=== PATIENT | female | born 1935 | race Caucasian/White ===

== ENCOUNTER 2021-11-19 15:49 | Outpatient (REF) | payer MEDICARE, SELFPAY ==
[2021-11-19 16:05] LABS: MANUAL DIFF FLAG NO
[2021-11-19 16:27] LABS: Basophils Absolute Auto 0.1 X10*3/uL (0.0-0.2); Basophils Percent Auto 1.3 % (0-2); Eosinophils Absolute Auto 0.3 X10*3/uL (0.0-0.4); Eosinophils Percent Auto 5.4 % (0-4); Hematocrit 33.6 % (37.0-47.0); Hemoglobin 10.9 g/dl (12.0-16.0); Imm Gran Abs Auto 0.03 X10*3/uL (0.00-0.03); Imm Gran Pct Auto 0.5 % (0.0-0.4); Lymphocytes Absolute Auto 1.8 X10*3/uL (1.2-4.9); Lymphocytes Percent Auto 32.1 % (20-40); Mean Corpuscular HGB Conc 32.4 g/dl (31.0-35.0); Mean Corpuscular Hemoglobin 30.3 pg (27.0-33.0); Mean Corpuscular Volume 93.3 fL (80.0-98.0); Mean Platelet Volume 9.1 fL (9.4-12.3); Monocytes Absolute Auto 0.7 X10*3/uL (0.1-1.2); Monocytes Percent Auto 12.8 % (2-11); Neutrophils Absolute Auto 2.7 x10*3/uL (2.0-8.3); Neutrophils Percent Auto 47.9 % (45-73); Platelet Count 319 X10*3/uL (160-400); Red Cell Distribution Width 14.4 % (11.0-16.0); White Blood Count 5.6 X10*3/uL (4.8-10.8)
[2021-11-19 16:41] LABS: Alanine Aminotransferase 19 U/L (0-31); Alkaline Phosphatase 135 U/L (39-117); Anion Gap 16 (12-20); Aspartate Amino Transferase 19 U/L (5-31); Bilirubin Total 0.6 mg/dL (0.0-1.0); Blood Urea Nitrogen 15 mg/dL (9-16); Calcium 9.7 mg/dL (8.4-10.2); Carbon Dioxide 28 mmol/L (22-29); Chloride 96 mmol/L (96-108); Estimated Glomerular Filt Rate > 60; Glucose Random 95 mg/dL (60-115); Potassium 4.3 mmol/L (3.3-5.1); Sodium 136 mmol/L (135-145); Total Protein 7.1 g/dL (6.5-8.0)
== END 2021-11-19 15:50 | disposition home or self-care (01) ==
LOC: HO.LAB 15:49
PROVIDERS: PCP Internal Medicine; Visit Provider Internal Medicine
DX: I10 Essential (primary) hypertension (principal); R33.8 Other retention of urine; R74.01 Elevation of levels of liver transaminase levels; M84.333 Stress fracture, right radius
CPT/HCPCS: 36415; 80053; 85025

== ENCOUNTER 2024-08-21 08:30 | Emergency (ER) | payer MEDICARE, MEDICAID, SELFPAY ==
--- NOTE | ~2024-08-21 | CT_ITS ---
EXAMINATION: CT CERVICAL SPINE WITHOUT CONTRAST CLINICAL INFORMATION: Bilateral of the bed. Head laceration. COMPARISON: None available. TECHNIQUE: Axial 3 mm thin and reformatted 2 mm thin sagittal and coronal images of cervical spine were obtained. This CT examination was performed using dose optimization techniques as appropriate, variously including the following: *Automated exposure control *Adjustment of mA and/or kV according to patient size (this includes techniques or standardized protocols for targeted exams where dose is matched to indication/reason for exam; i.e. extremities or head) *Use of iterative reconstruction technique DLP 1259. FINDINGS: On sagittal reconstructed images there is maintained cervical lordosis. The vertebral heights and alignment is normal. The loss of C3-C4, C4-5 and C5-6 disc height with ventral and posterior spondylosis. The craniovertebral junction and the C1-C2 alignment is normal. No visible acute fracture, dislocation or subluxation seen. The prevertebral and paravertebral soft tissues are normal. The airway is widely patent. The paranasal sinuses are well-aerated and clear. There is bilateral apical parenchymal emphysematous changes and scarring CT/CT cervical spine wo IV con IMPRESSION: Degenerative disc changes. No visible acute fracture, dislocation or subluxation seen in cervical spine. Fleischner guidelines were followed. Electronically signed by: Jaime Pineda MD 08/21/2024 09:48 AM EDT
--- NOTE | ~2024-08-21 | CT_ITS ---
EXAMINATION: CT HEAD WITHOUT CONTRAST CLINICAL INFORMATION: Keith plus head strike COMPARISON: None available. TECHNIQUE: Contiguous axial imaging was performed from the skull base to vertex without intravenous administration of contrast. This CT examination was performed using dose optimization techniques as appropriate, variously including the following: *Automated exposure control *Adjustment of mA and/or kV according to patient size (this includes techniques or standardized protocols for targeted exams where dose is matched to indication/reason for exam; i.e. extremities or head) *Use of iterative reconstruction technique FINDINGS: Brain: There is no acute intra-axial, extra-axial bleed, masses or midline shift. No acute infarction evolution. The christie to white matter differentiation is maintained normal. The lateral ventricles are symmetrical but enlarged. There is a right frontal minimal scalp soft tissue haziness/swelling without any calvarial fracture right lateral paranasal sinuses and mastoid air cells are well-aerated. CT/CT head/brain wo IV con IMPRESSION: No acute intracranial process seen except for minimal right frontal scalp soft tissue swelling Electronically signed by: Jaime Pineda MD 08/21/2024 09:46 AM EDT
[2024-08-21 08:33] VITALS: BP 112/70; PULSE 92
[2024-08-21 08:40] VITALS: BP 99/63; PULSE 76; RESP 19; TEMP 36.6; BMI 17.2
--- NOTE | 2024-08-21 08:41 | ED_ITS ---
HPI - Fall General Chief Complaint: Fall Stated Complaint: FALL @SNF,HEAD LAC/CONTROLLED,+CCOLLAR,-THINNER Time Seen by Provider: 08/21/24 08:31 Source: patient, EMS, RN notes reviewed and old records reviewed Mode of arrival: EMS History of Present Illness ED Provider: Madison Laura PA-C HPI Narrative: 89-year-old female with a past medical history malignant neoplasm of colon, HTN, asthma, ACS, dysphagia, GERD, vascular dementia, presenting to the ED via EMS from [facility] s/p unwitnessed fall out of bed this morning with laceration noted to posterior scalp. Patient currently on hospice. Baseline confused. Remaining history limited due to patient's baseline mental status Related Data Allergies Allergy/AdvReac Type Severity Reaction Status Date / Time amlodipine Allergy Unknown Verified 08/21/24 08:48 gluten Allergy Unknown Verified 08/21/24 08:52 Review of Systems 2 Review of Systems: Yes all other systems are reviewed and are negative Constitutional: Constitutional: Reports as per [facility] Past Medical History Attestation statement: The following information was validated with the patient. Source: old records reviewed Social History Social History Advance Directives: No Advance Directives Information Provided: No Physical Exam 2 Vital Signs: Vital Signs: Last Vital Signs Temp 98 F 08/21/24 08:40 Pulse 76 08/21/24 08:40 Resp 19 08/21/24 08:40 BP 99/63 08/21/24 08:40 O2 Del Method Room Air 08/21/24 08:40 BMI result Body Mass Index 17.2 Const: General: cooperative, healthy appearing and no acute distress L imitations: no limitations HEENT: Other: Large 12 cm laceration noted to posterior scalp. Small hematoma noted. No active bleeding. No appreciable skull depression. Head: Yes laceration Ears: hearing grossly normal bilaterally General nose exam: Normal external nose present Face and sinus: Yes normal facial exam Eyes: General: appearance normal, both eyes and all related structures P upils: Equal, round and reactive pupils present EOM: EOMs intact bilaterally Neck: Other: C-collar in place Neck: Yes normal visual inspection Resp: Effort & Inspection: normal respiratory effort and no respiratory distress Cardio: Rate: regular rate GI: Inspection: Yes normal to inspection Palpation (GI): Soft to palpation, nontender, no guarding and not rigid Skin: Other: Please refer to image above Rashes: no rashes Wounds: no wounds Neuro: General: tone normal and moves all extremities Cranial nerves: Yes CN's II-XII intact bilaterally and Yes Equal, round and reactive pupils present Extrem: Other: Pelvis stable. MAY General: Yes normal to inspection Course Course Course Narrative: CT head/brain wo IV con IMPRESSION: No acute intracranial process seen except for minimal right frontal scalp soft tissue swelling CT cervical spine wo IV con IMPRESSION: Degenerative disc changes. No visible acute fracture, dislocation or subluxation seen in cervical spine. -21 gavin placed to posterior scalp Results discussed with patient including worrisome signs and symptoms and strict return precautions, and when to return to the emergency department. They verbalized understanding and feel safe for discharge at this time. Medications Administered Discontinued Medications Generic Name Dose Route Start Last Admin Trade Name Freq PRN Reason Stop Dose Admin Acetaminophen 975 mg 08/21/24 10:08 08/21/24 10:14 Acetaminophen 325 Mg Tablet PO 08/21/24 10:09 975 mg ONCE ONE Administration Procedures Laceration Laceration 1: Site: scalp Size (cm): 12 Description: linear and flap Pre-repair: wound explored Skin layer closed with: other (gavin) Number of sutures: 21 Medical Decision Making Medical Decision Making MDM Narrative: 89-year-old female with a past medical history malignant neoplasm of colon, HTN, asthma, ACS, dysphagia, GERD, vascular dementia, presenting to the ED via EMS from [facility] s/p unwitnessed fall out of bed this morning with laceration noted to posterior scalp. Patient currently on hospice. On exam vital signs stable, NAD, appears uncomfortable, baseline confused. Large laceration noted to posterior scalp as depicted above. No other evidence of trauma. No midline spinous tenderness. Moving all 4 extremities. C-collar in place. Concern for ICH vs fracture. Tetanus unknown Plan: Head/C-spine CT, repair laceration Spoke with patient's next of kin Chad Douglas, agreeable to obtain CTs, repair wound, and transfer back to facility Please refer to course for remaining clinical decision making, interpretation of labs/imaging results, and discussions with consultants and/or family members. Differential Diagnosis Differential Diagnoses: The differential diagnosis associated with the presentation includes As above Admission/Observation Consideration of admission/observation: Escalation of care including admission/observation considered Lab Data MDM Lab Attestation statement: I reviewed the patient's lab results. Independent Interpretation I performed an independent interpretation of an: CT Scan Radiology Impression Discussion of test interpretation with radiology: I have reviewed the radiologist's reading. Independent Historian Clinical information obtained from an independent historian. History obtained from or confirmed by: EMS External Record Review External record reviewed: Inpatient record, Office record, Outpatient record, Prior outpatient labs, Prior outpatient radiology, Primary care record and Outside ED record Tests considered The following testing was considered but not selected: As above Prescription Management I considered prescription management with: Other Chronic Conditions Patient?s care impacted by: Other Social Determinants Patient?s care significantly limited by Social Determinants of Health including: Inadequate housing, Problems related to primary support group and Other Social Determinant of Health Discharge Plan Discharge Clinical Impression: Laceration of scalp Patient Disposition: [facility] Instructions: Laceration (DC) Additional Instructions: Your wounds were repaired today in the emergency department. Keep dry and clean. You need to return to any emergency department, urgent care, or your PCPs office in 7-10 days for staple removal Apply bacitracin and or Neosporin daily Once sutures are removed apply anti scar cream like Mederma If area begins look infected, is red, there is drainage, streaking, or you have fever please return to the emergency department Referrals: Omi Chou MD [Primary Care Provider] - 1 week Print Language: Unable To Collect
[2024-08-21] MEDS: Acetaminophen 325 MG TABLET 975 MG PO (10:14)
--- OUTSIDE RECORDS SUMMARY | 2024-08-21 10:22 | XMS_ITS ---
Author Organization [facility] Care Team Providers Care Database Designer Name Role Phone Gerri Cabral Unavailable Unavailable Omi Chou Unavailable Unavailable Shanelle Thomason Unavailable Unavailable Allergies and adverse reactions Code CodeSystem Substance Reaction Severity StartDate Concern Status Gluten Unknown 04/29/2021 active 91322 RXNORM Amlodipine Mild 04/29/2021 active Care Team Name Role Address Phone Organization Dates Omi Chou PCP [address], [place], [address], [facility] (Office): [facility] 04/29/2021 - 05/12/2021 Gerri Cabral Attending Physician [address] [place] [address], [address], [place] (Office): [facility] 04/29/2021 - 05/12/2021 Shanelle Thomason Attending Physician [address], [address], [facility] (Office): [facility] 04/29/2021 - 05/12/2021 Immunizations Immunization Status Vaccine Details Vaccine Code CodeSystem Date Notes SARS-COV-2 (COVID-19) completed SARS-COV-2 (COVID-19) vaccine, mRNA, spike protein, LNP, preservative free, 30 mcg/0.3mL dose Mfg: [employer]aleio Step 1 of Multi-step 208 CVX created date: 04/29/2021 administere d date: 02/26/2021 Booster vaccine SARS-COV-2 (COVID-19) completed SARS-COV-2 (COVID-19) vaccine, mRNA, spike protein, LNP, preservative free, 30 mcg/0.3mL dose Mfg: [employer] Step 2 of Multi-step with next step required 208 CVX created date: 04/29/2021 administere d date: 06/20/2020 SARS-COV-2 (COVID-19) completed SARS-COV-2 (COVID-19) vaccine, mRNA, spike protein, LNP, preservative free, 30 mcg/0.3mL dose Mfg: [employer] Step 1 of Multi-step with next step required 208 CVX created date: 04/29/2021 administere d date: 05/26/2020 Mental Status Section Date Assessment Total Score Description 05/12/2021 CAM 0 No delirium ind icated PHQ-9 00 05/05/2021 BIMS 07 severe cognitiv e impairment CAM 0 No delirium ind icated PHQ-9 00 Problems Problem # Description Date of onset Resolved Date Code CodeSystem Concern Status 1 ESSENTIAL (PRIMARY) HYPERTENSION 04/30/[address] active 2 GASTRO-ESOPHAGEAL REFLUX DISEASE WITHOUT ESOPHAGITIS 04/30/[address] active 3 PULMONARY HYPERTENSION, UNSPECIFIED 04/30/[address] active 4 VITAMIN B12 DEFICIENCY ANEMIA, UNSPECIFIED 04/30/[address] active 5 CARDIAC ARRHYTHMIA, UNSPECIFIED 04/29/[address] active 6 CELIAC DISEASE 04/29/[address] ac tive 7 CHRONIC DIASTOLIC (CONGESTIVE) HEART FAILURE 04/29/[address] active 8 CHRONIC PULMONARY EDEMA 04/29/[address] active 9 DIFFICULTY IN WALKING, NOT ELSEWHERE CLASSIFIED 04/29/[address] active 10 DISORDER OF KIDNEY AND URETER, UNSPECIFIED 04/29/[address] active 11 LOW BACK PAIN, UNSPECIFIED 04/29/[address] active 12 MUSCLE WEAKNESS (GENERALIZED) 04/29/[address] active 13 OTHER SPECIFIED ABNORMAL FINDINGS OF BLOOD CHEMISTRY 04/29/[address] active 14 OTHER SPECIFIED HEARING LOSS, BILATERAL 04/29/[address] active 15 REPEATED FALLS 04/29/[address] ac tive 16 UNSPECIFIED DEMENTIA, UNSPECIFIED SEVERITY, WITHOUT BEHAVIORAL DISTURBANCE, PSYCHOTIC DISTURBANCE, MOOD DISTURBANCE, AND ANXIETY 04/29/[address] active 17 UNSPECIFIED FALL, SEQUELA 04/29/[address] active 18 UNSTEADINESS ON FEET 04/29/[address] active 19 URINARY TRACT INFECTION, SITE NOT SPECIFIED 04/29/[address] active Reason for Referral No Reasons for Referral Entered Social History Social History Observation Description Start Date End Date Code Code System Current Smoking Status Tobacco smoking consumption unknown 345054392 SNOMED CT Sex Assigned At Female 1935 64150-4 [facility] Vital Signs Code Code System Vitals Name Values and Units Timing Information 9279-1 [facility] Respiratory Rate Value=20.0 Units=/m in 05/12/2021 8462-4 [facility] Blood Pressure-Diastolic Value=63 Un its=mmHg 05/12/2021 8480-6 [facility] Blood Pressure-Systolic Lxqbp=709 Un its=mmHg 05/12/2021 8310-5 [facility] Body Temperature Value=97.2 Units=?? F 05/12/2021 8867-4 [facility] Heart rate Eepnk=853.0 Units=/min 05/12/2021 87354-0 [facility] O2 % BldC Oximetry Value=97.0 Units= % 05/12/2021 69406-0 [facility] Pain Level Value=0.0 05/12/2021 39913-7 INC Weight Lgplv=896.0 Units=Lbs 8302-2 LOINC Height Value=62.0 Units=Inches 04/29/2021
[2024-08-21] MEDS: Diphth,Pertus(ACell),Tet Adult 0.5 ML SYRINGE IM (11:59)
--- NOTE | 2024-08-21 12:37 | PC.NURSE ---
verbal nurse to nurse report given to gregory at [facility] in [facility] [phone]
[2024-08-21 13:08] VITALS: BP 121/58; PULSE 71; RESP 14; TEMP 36.9
--- NOTE | 2024-08-21 13:21 | PHA.MEDREC ---
Pharmacy Consult ? Medication Reconciliation Pharmacy has completed the medication reconciliation, utilized list from [facility].
[2024-08-21 14:18] VITALS: BP 144/63; PULSE 75; RESP 16; TEMP 36.4; O2SAT 94
[2024-08-21 14:29] VITALS: BP 144/63; PULSE 75; RESP 16; TEMP 36.4; O2SAT 94
== END 2024-08-21 14:31 | disposition skilled nursing facility (03) ==
PROVIDERS: Emergency Provider Emergency Medicine; PCP Family Medicine Geriatric Medicine
DX: S01.01XA Laceration without foreign body of scalp, initial encounter (principal); M54.2 Cervicalgia; R51.9 Headache, unspecified; I10 Essential (primary) hypertension; W06.XXXA Fall from bed, initial encounter; Y93.9 Activity, unspecified; Y92.003 Bedroom of unspecified non-institutional (private) residence as the place of occurrence of the external cause; Y99.8 Other external cause status; Z23 Encounter for immunization
CPT/HCPCS: 12034; 70450; 72125; 90471; 90715; 99284

== ENCOUNTER → 2024-08-21 08:51 | Outpatient (BNV) | payer MEDICARE, SELFPAY | PROVIDERS: PCP Family Medicine Geriatric Medicine; Visit Provider Radiology Diagnostic Radiology | DX: M50.30 Other cervical disc degeneration, unspecified cervical region (principal); S09.90XA Unspecified injury of head, initial encounter | CPT/HCPCS: 70450; 72125 ==